=== PATIENT | female | born 1995 | race Two or more races ===

== ENCOUNTER 2024-12-01 14:37 | Inpatient (IN) | payer MEDICAID, SELFPAY ==
[2024-12-01] VITALS (11 sets, daily range): BP systolic 118–140; BP diastolic 73–95; PULSE 86–102; RESP 16–18; TEMP 36.7–36.9; O2SAT 99–100; BMI 25.0
--- NOTE | 2024-12-01 14:42 | ESHP_ITS ---
Documentation for date of: 12/01/24 OB Labor/Induct. HPI History of Present Illness History of present illness: 29 yo (history of x3) presents with contractions. notabed for: 1) Hx of T21 in third No LOF, VB. Painful contractions. Normal movement. Labs Narrative: PNL reviewed in chart GBS negative Review of Systems Review of Systems Narrative Review of Systems: Negative except that noted above Meds Home Medications and Allergies Allergies Allergy/AdvReac Type Severity Reaction Status Date / Time No Known Allergies Allergy Unverified 12/01/24 14:44 OB Exam Physical Exam Vital signs: Normal BP Narrative: GEN: NAD RESP normal work of breathing ABD: gravid, non tender EXT: no unilateral swelling EFW: 3300g Detailed Labor and Delivery Exam Comments: 9cm -> 10cm bulging bag, cephalic FHT: Cat 1, no decels [place]: q2-3m OB Assessment & Plan Assessment and Plan (1) Normal labor: Status: Acute Additional Plan Additional Plan Comment: Admit for active labor at 40+4 Labor: expectant management, likely AROM Hx of T21: received PNC in this GBS negative FWB: Category 1 Anticipate PPH risk low
[2024-12-01] MEDS: MINERAL OIL 30 ML UDC TOP (15:00)
[2024-12-01] MEDS: OXYTOCIN in NS 20 units 20 UNIT/1,000 ML BAG 125 UNIT IV (15:10)
[2024-12-01] MEDS: MISOPROSTOL 200 mCg TABLET 800 MCG PR (15:11)
[2024-12-01] MEDS: LIDOCAINE HCL 1% 20 ML VIAL INFL (15:14)
[2024-12-01] MEDS: BENZO/LANO/ALOE (Dermoplast) 60 GM CAN 1 SPRAY TOP (15:39)
[2024-12-01] MEDS: IBUPROFEN TAB 400 MG TABLET 800 MG PO (17:02)
[2024-12-01 17:28] LABS: Basophils # (Auto) 0.1 Thou/mm3 (0.0-0.2); Basophils % (Auto) 1 % (0-2.5); Eosinophils % (Auto) 0 % (0-10); Hematocrit 39.8 % (36.0-46.0); Hemoglobin 12.7 g/dL (12.0-16.0); Immature Granulocytes % (Auto) 1 % (0-0); Immature Granulocytes Auto 0.18 Thou/mm3 (0.00-0.00); Lymphocytes # (Auto) 2.2 Thou/mm3 (1.0-4.8); Lymphocytes % (Auto) 17 % (10-50); Mean Corpuscular HGB Conc 31.9 g/dl (31.0-37.0); Mean Corpuscular Hemoglobin 25.7 pg (25.0-35.0); Mean Corpuscular Volume 80 fL (80-100); Monocytes # (Auto) 0.7 Thou/mm3 (0.0-0.8); Monocytes % (Auto) 5 % (0-12); Neutrophils # (Auto) 9.7 Thou/mm3 (1.8-7.7); Neutrophils % (Auto) 76 % (37-80); Nucleated Red Blood Cell # 0.02 Thou/mm3 (0.00-0.00); Nucleated Red Blood Cell % 0 /100 WBC (0); Platelet Count 218 Thou/mm3 (140-440); RDW Standard Deviation 42.5 fL (36.4-46.3); Red Blood Count 4.95 Miln/mm3 (4.00-5.20); White Blood Count 12.8 Thou/mm3 (3.6-11.0)
[2024-12-01 17:55] LABS: Syphilis Nonreactive (Nonreactive)
--- NOTE | 2024-12-01 19:39 | OBDSUM_ITS ---
Vacuum Assisted Delivery Additional Comments Additional comments: Patient is a 29yo now s/p uncomplicated at 40w4d who presented in active labor. She progressed and SROMed to thin meconium amniotic fluid. and became complete at 0 station at which she began pushing. With good maternal pushing efforts, 's head delivered SHERRY. Left anterior shoulder delivered easily followed by posterior shoulder and corpus. had spontaneous cry and was vigorous. Female infant, weight 3530 Apgars 9/9. placed on maternal abdomen where nose/mouth were suctioned and dried/stimulated. Cord was clamped and cut. With fundal massage and cord traction, placenta delivered spontaneously and in tact with 3 vessel centrally inserted cord. Bimanual massage performed and IV pitocin given per protocol with fundus then firm. Inspection of perineum and vagina revealed first degree laceration which was repaired with 2-0 vicryl with 8cc of 1% lidocaine. Lower segment noted to be atonic, so EVERARDO done and 800mcg misoprostol VT placed with hemostasis. Bladder straight cathed with approximately 150cc clear urine. All counts correct x2. Patient and stable at the end of delivery. EBL 500cc Data ([facility]cedes) Data : 4 Para: 3 Term: 3 : 0 : 0 Delivery Data (Mercedes) Labor Data ROM Date: 12/01/24 ROM Time: 14:57 Rupture Type: SROM Amniotic Fluid: Thin Meconium Delivery Data Labor Onset Stage 1 Date: 12/01/24 Labor Onset Stage 1 Time: 14:00 Labor Onset Stage 2 Date: 12/01/24 Labor Onset Stage 2 Time: 15:00 Delivery Date: 12/01/24 Delivery Time: 15:03 Placenta Delivery Date: 12/01/24 Placenta Delivery Time: 15:10 Delivered by: Ailin Adame Delivery nurse: Edwige Kennedy Other staff at delivery: Nursery Nurse Other staff at delivery: Asuncion Vee Delivery Method Delivery: Vaginal Delivery Type: Spontaneous Anesthesia Type Primary Anesthesia: Local Perineal repair Sutures used for repair: other EBL Estimated blood loss (ml): 500 Umbilical Cord Nuchal Cord: x1 [place] Data (Mercedes) [place] Data Gender: Female Infant Weight Grams: 3530 1 Minute Total: 9 5 Minute Total: 9
[2024-12-01 23:42] LABS: Amphetamine/Metham Scrn,Ur OB Negative (Negative); Benzoylecgonine Screen, Ur OB Negative (Negative); Opiate Screen,Urine OB Negative (Negative); THC Screen,Urine OB Negative (Negative)
[2024-12-02 00:19] VITALS: BP 128/83; PULSE 78; RESP 16; TEMP 36.7; O2SAT 100
[2024-12-02 04:07] VITALS: BP 120/84; PULSE 76; RESP 18; TEMP 36.6; O2SAT 99
[2024-12-02 06:09] LABS: Basophils # (Auto) 0.1 Thou/mm3 (0.0-0.2); Basophils % (Auto) 1 % (0-2.5); Eosinophils # (Auto) 0.1 Thou/mm3 (0.0-0.5); Eosinophils % (Auto) 1 % (0-10); Hematocrit 30.5 % (36.0-46.0); Hemoglobin 9.9 g/dL (12.0-16.0); Immature Granulocytes % (Auto) 1 % (0-0); Immature Granulocytes Auto 0.12 Thou/mm3 (0.00-0.00); Lymphocytes # (Auto) 2.7 Thou/mm3 (1.0-4.8); Lymphocytes % (Auto) 22 % (10-50); Mean Corpuscular HGB Conc 32.5 g/dl (31.0-37.0); Mean Corpuscular Hemoglobin 26.1 pg (25.0-35.0); Mean Corpuscular Volume 81 fL (80-100); Monocytes # (Auto) 0.8 Thou/mm3 (0.0-0.8); Monocytes % (Auto) 6 % (0-12); Neutrophils # (Auto) 8.5 Thou/mm3 (1.8-7.7); Neutrophils % (Auto) 70 % (37-80); Nucleated Red Blood Cell # 0.02 Thou/mm3 (0.00-0.00); Nucleated Red Blood Cell % 0 /100 WBC (0); Platelet Count 177 Thou/mm3 (140-440); RDW Standard Deviation 42.2 fL (36.4-46.3); Red Blood Count 3.79 Miln/mm3 (4.00-5.20); White Blood Count 12.2 Thou/mm3 (3.6-11.0)
--- NOTE | 2024-12-02 06:21 | PC.NURSE ---
12/02/2024 @ 0615 Dr. Adame in to see and assess patient, may go home with FE PO if post HgB is low.
--- NOTE | 2024-12-02 06:35 | PD.LDPPPRG ---
Subjective Subjective Interval history: 29 yo now s/p uncomplicated (12/01/2024) EBL 500cc PPD#1 Patient doing well no issues . Baby at beside. . Pain well controlled, bleeding within normal limits. Voiding without issues. No lightheadedness when walking. Exam Vital Signs Temp Pulse Resp BP Pulse Ox O2 Del Method 97.8 F 76 18 120/84 99 Room Air 12/02/24 04:07 12/02/24 04:07 12/02/24 04:07 12/02/24 04:07 12/02/24 04:07 12/02/24 04:07 Narrative Exam General: NAD RESP: normal work of breathing Abdomen: soft, gravid, non-tender, no rebound or guarding, Fundus firm and at approximate levl of the umbilicus Extremities: no pain with palpation of calves and no unilateral swelling Objective Labs 12/02/24 04:56 Labs: Laboratory Results - last 24 hr 12/01/24 12/01/24 12/02/24 14:40 23:15 04:56 WBC 12.8 H 12.2 H RBC 4.95 3.79 L Hgb 12.7 9.9 L D Hct 39.8 30.5 L MCV 80 81 MCH 25.7 26.1 MCHC 31.9 32.5 RDW Std Deviation 42.5 42.2 Plt Count 218 177 D Neut % (Auto) 76 70 Lymph % (Auto) 17 22 [place] % (Auto) 5 6 Eos % (Auto) 0 1 Baso % (Auto) 1 1 Neut # (Auto) 9.7 H 8.5 H Lymph # (Auto) 2.2 2.7 [place] # (Auto) 0.7 0.8 Eos # (Auto) 0.0 0.1 Baso # (Auto) 0.1 0.1 Immature Gran # (Auto) 0.18 H 0.12 H Absolute Nucleated RBC 0.02 H 0.02 H Immature Gran % 1 H 1 H Nucleated RBC % 0 0 Urine Opiates Screen Negative U Amphetamin/Meth Scrn Negative U Cocaine Metab Screen Negative U Marijuana (THC) Screen Negative Syphilis Serology Nonreactive Blood Type B Positive Antibody Screen NEGATIVE Blood Bank Wristband ID Yes Assessment & Plan Problem List (1) Normal labor: Status: Acute Assessment Comment Assessment comment: 29 yo now s/p uncomplicated (12/01/2024) EBL 500cc Doing well . Vitals wnl, benign exam. Hemodynamically stable with no evidence of infection. Plan Comment Plan Comment: -Continue routine care -Hemodynamically stable 12.7 -> EBL 500cc -> 9.9 no s/s of acute bleeding -Regular diet - Ferrous sulfate for anemia -Encourage ambulation - Safe for discharge home later today, precautions discussed Time Spent With Patient Time: Total time spent is greater than 50% in coordination of care (as documented) at patient's floor/unit and/or counseling patient:
--- NOTE | 2024-12-02 06:44 | PD.LDDS ---
DS: Providers Provider Date of admission: 12/01/24 14:37 Primary care physician: Saman Cassidy MD Admitting Provider: Ailin Adame MD Attending Provider on Admission: iAlin Adame MD Consults: 12/01/24 15:58 Referral Routine Comment: Attending Provider on DC: Ailin Adame MD Discharging Provider: Ailin Adame MD DS: Diagnosis Discharge Diagnosis (1) Normal vaginal delivery: Status: Acute (2) Normal labor: Status: Acute (3) Anemia: Status: Acute Problem List Completed Was Problem List Reviewed/Reconciled?: Yes Summary/Hosp Course Brief History: 29 yo (history of x3) presents with contractions. notabed for: 1) Hx of T21 in third No LOF, VB. Painful contractions. Normal movement. Hospital course: 29 yo now presented in active labor and SROMed to complete. She underwent an uncomplicated at 40+4 (12/01/2024) EBL 500cc. Patient had a first degree laceration which was repaired in the usual fashion and received misoprostol [place]. She delivered with no complications a female infant with Apgars 9/9 weight 3530g. Patient received routine care and was meeting all milestones on PPD1 and was discharged home in stable condition. Time Spent with Patient Time attestation: Total time spent providing and/or coordinating discharge services: Exam Vital Signs Temp Pulse Resp BP Pulse Ox O2 Del Method 97.8 F 76 18 120/84 99 Room Air 12/02/24 04:07 12/02/24 04:07 12/02/24 04:07 12/02/24 04:07 12/02/24 04:07 12/02/24 04:07 Narrative Exam RESP: normal work of breathing Abdomen: soft, gravid, non-tender, no rebound or guarding, Fundus firm and at approximate levl of the umbilicus Extremities: no pain with palpation of calves and no unilateral swelling Discharge Plan Plan Patient Disposition: HOME (Self Care) Patient condition on transfer: Stable Prescriptions/Referrals Prescriptions/Med Rec: New acetaminophen 325 mg Tablet 650 mg PO Q4H PRN (Reason: See Comments) Qty: 20 0RF ibuprofen 400 mg Tablet 800 mg PO Q8H PRN (Reason: See Comments) Qty: 20 0RF docusate sodium [Colace] 100 mg capsule 100 mg PO QDAY Qty: 20 0RF Accrufer 30 mg capsule 30 mg PO DAILY Qty: 30 0RF Referrals: Saman Cassidy MD [Primary Care Provider] - Patient/Caregiver Discharge Instructions Discharge Activity: activity as tolerated Education Materials: After a Vaginal Print Language: Indonesian Stand Alone Forms: Sarita Award Info., Patient Portal Info Letter Discharge Order Discharge Orders: Discharge (Routine); Ordered 12/02/24 Ordered By: Ailin Adame Planned Discharge Date 12/02/24
[2024-12-02 09:15] VITALS: BP 115/73; PULSE 86; RESP 16; TEMP 36.8; O2SAT 100
--- NOTE | 2024-12-02 19:01 | PC.CC ---
SS referral for pt Anna Martinez, 29 yr old female late to care at 16 weeks. ASW met with pt at bedside, introducing self and role in pt care. At time of encounter FOB Felecia Cagle [phone] is at bedside. Pt expressed verbal consent for FOB to remain during assessment. Pt noted to be alert and oriented to person, place and situation. Pt agreeable to meet with ASW at this time. Pt confirmed being late to care at 16 weeks, stating she was unaware of . Pt reports being compliant with appointments following initial engagement. Per pt this is couples 4th child with other children being 9, 8 and 14 months. Pt reports having all needs for infants D/c home. Per pt family will D/c to their residence at [address] [place] [address], with FOB providing transport. Pt reports having support from family and friends. Pt is connected with [employer] and plans to apply for WIC and SNAP. Per pt FOB is gainfully employed. Pt denies needing any further resources at this time. Pt denies any hx with CWS. Pt denies any hx of substance use. Pt denies any hx of DV.
== END 2024-12-02 16:30 | disposition home or self-care (01) | DRG 560 ==
LOC: S4SX 14:38 → S4NX 16:27
PROVIDERS: Admitting Provider Obstetrics & Gynecology; PCP Family Medicine; Visit Provider Obstetrics & Gynecology
DX: O48.0 Post-term pregnancy (principal); O69.81X0 Labor and delivery complicated by cord around neck, without compression, not applicable or unspecified; O70.0 First degree perineal laceration during delivery; O77.0 Labor and delivery complicated by meconium in amniotic fluid; Z3A.40 40 weeks gestation of pregnancy; Z37.0 Single live birth; O90.81 Anemia of the puerperium
CPT/HCPCS: 36415; 80307; 85025; 86780; 86850; 86900; 86901; 94762; J2590; J3490; S0191; A9270